=== PATIENT | male | born 1995 | race Caucasian/White ===

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

== ENCOUNTER 2018-02-01 13:59 | Emergency (ER) | payer MEDICAID ==
[~2018-02-01] VITALS: Ht 190.5 cm; Wt 63.6 kg
[2018-02-01 14:05] VITALS: Ht 190.5 cm; Wt 63.6 kg
[2018-02-01] MEDS ORDERED: ZANTAC150 MG PO (14:06)
[2018-02-01] MEDS ORDERED: ATIVAN1 MG PO (14:06)
[2018-02-01 14:49] LABS: BASOPHILS 0.5 % (0-2); EOSINOPHILS 1.7 % (0-7); HEMATOCRIT 47.2 % (42.0-54.0); IMMATURE GRANULOCYTES 0.2 % (0-5); LYMPHOCYTES 33.3 % (15-50); MCH 31.6 pg (26.0-34.0); MCHC 33.9 g/dL (31.0-37.0); MCV 93.3 fL (80.0-100.0); MEAN PLATELET VOLUME 10.9 fL (7.4-10.4); MONOCYTES 11.3 % (2-11); PLATELET COUNT 165 10x3/uL (130-400); RBC 5.06 10x6/uL (4.20-6.10); RDW 11.8 % (11.5-14.5); WBC 4.2 10x3/uL (4.8-10.8)
[2018-02-01 15:07] LABS: ALKALINE PHOSPHATASE 67 U/L (46-116); ALT (SGPT) 19 U/L (10-68); BILIRUBIN - TOTAL 0.44 mg/dL (0.2-1.3); CALC OSMOLALITY 276 mosm/kg (275-300); CALCIUM 9.6 mg/dL (8.5-10.1); CARBON DIOXIDE 28.9 mmol/L (21.0-32.0); CHLORIDE - SERUM 104 mmol/L (98-107); CREATININE - SERUM 0.9 mg/dL (0.6-1.3); GLUCOSE 91 mg/dL (74-106); POTASSIUM - SERUM 4.2 mmol/L (3.5-5.1); PROTEIN - SERUM 7.1 g/dL (6.4-8.2); SODIUM 140 mmol/L (136-145); UREA NITROGEN 8 mg/dL (7-18); eGFR NON AFRICAN AMERICAN > 90 mL/min (90-120)
[2018-02-01 15:55] LABS: AMYLASE - SERUM 57 U/L (25-115); LIPASE 113 U/L (73-393)
[2018-02-01 16:41] LABS: APPEARANCE CLEAR (CLEAR); BILIRUBIN NEGATIVE (NEGATIVE); COLOR YELLOW (YELLOW); GLUCOSE NEGATIVE (NEGATIVE); KETONE NEGATIVE (NEGATIVE); NITRITE NEGATIVE (NEGATIVE); PROTEIN NEGATIVE (NEGATIVE); SPECIFIC GRAVITY 1.005 (1.005-1.020); UROBILINOGEN NORMAL (NORMAL)
[2018-02-01 16:44] LABS: WHITE CELLS - URINE 0-5 /hpf (0-5)
[2018-02-01 16:45] LABS: BACTERIA FEW /hpf (NONE SEEN)
[2018-02-01] MEDS ORDERED: PHENERGAN25 MG RC (18:49)
[2018-02-01] MEDS ORDERED: CIPRO500 MG PO (18:49)
[2018-02-01] MEDS ORDERED: FLAGYL500 MG PO (18:49)
[2018-02-01 20:00] VITALS: BP 133/69
[2018-04-16 12:45] VITALS: Ht 190.5 cm; Wt 63.6 kg
== END 2018-02-01 20:00 | disposition home or self-care (01) ==
LOC: D.ER 13:59
PROVIDERS: Emergency Medicine
DX: K52.9 Noninfective gastroenteritis and colitis, unspecified (principal); F17.200 Nicotine dependence, unspecified, uncomplicated

== ENCOUNTER → 2018-02-14 12:39 | Outpatient (CLI) | payer MEDICAID ==
[2018-02-01 14:05] VITALS: BMI 17.5
[~2018-02-14 12:39] MED LIST: ATIVAN1 MG PO; CARAFATE1 G PO; CIPRO500 MG PO; FLAGYL 500500 MG/100 IV; FLAGYL500 MG PO; LEVSIN/ANASP0.125 MG SL; NICODERM C1 PATCH .2 TRANSDERM; NICODERM C1 PATCH .3 TRANSDERM; PHENERGAN25 MG RC; PROTONIX40 MG PO; ZANTAC150 MG PO
[2018-04-16 12:45] VITALS: BMI 18.1
== END | disposition home or self-care (01) ==
LOC: D.NM 02-10 08:00
DX: R11.2 Nausea with vomiting, unspecified (principal)

== ENCOUNTER 2018-02-20 18:18 | Inpatient (IN) | payer MEDICAID ==
[~2018-02-20] VITALS: Ht 190.5 cm; Wt 69.4 kg
--- NOTE | ~2018-02-20 | OP ---
PATIENT NAME: YOBANI RODRIGUEZ II MEDICAL RECORD: [id number] :[birth year] LOCATION:D.[id number] ADMISSION DATE:02/22/18 SURGEON: JORGE GARZA MD DATE OF OPERATION: 02/24/2018 PREOPERATIVE DIAGNOSIS: Biliary dyskinesia. POSTOPERATIVE DIAGNOSES: Biliary dyskinesia with hepatomegaly. PROCEDURES: 1. Laparoscopic cholecystectomy. 2. Intraoperative cholangiogram without immediate surgeon interpretation. 3. A 14-gauge core needle liver biopsy. SURGEON: Jorge Garza MD DIRECTOR OF SPEECH PATHOLOGY: None. BLOOD LOSS: Minimal. ANESTHESIA: General. COMPLICATIONS: None. The risks, possible complications, and alternatives to the procedures were explained to the patient. He elects to proceed. OPERATIVE COURSE: The patient was conveyed to the operating room electively on 02/24/2018. General anesthesia was induced by the anesthesia staff. The abdomen was sterilely prepped and draped. A small skin livan was accomplished in the left upper quadrant. A Veress needle was inserted through the skin livan into the peritoneal cavity. CO2 insufflation was begun. Once a sufficient pneumoperitoneum had been achieved, a 5 mm trocar was inserted through an incision in the right upper quadrant. Under direct internal vision utilizing a television camera, a 12 mm trocar was inserted through an incision at the umbilicus. Another 5 mm trocar was inserted through an incision in the epigastrium. Another 5 mm trocar was inserted far laterally in the right upper quadrant. During insertion of the Veress needle and all trocars, there appeared to have been no injury to the bowels, any intraperitoneal or retroperitoneal structures. The indication for the liver biopsy was hepatomegaly. Under laparoscopic guidance, I percutaneously accessed the right upper quadrant utilizing an 14-gauge core needle liver biopsy device. Cores were obtained over the convexity of the liver. The biopsy sites were made hemostatic with the electrocautery. I then advanced a cholangiogram trocar. I punctured the fundus of the gallbladder. I aspirated bile. I then injected dye. Under real time fluoroscopy, static fluoroscopic images were obtained. These are cholangiographic images that are sent to the radiologist for interpretation. I then aspirated bile and removed the cholangiogram trocar. The gallbladder was grasped and retracted cephalad. The infundibulum was grasped and retracted laterally. The critical view was identified. Blunt dissection was begun on the triangle of Calot. One cystic artery and one cystic duct were identified. These were clipped multiply and divided between clips. OPERATIVE REPORT [id number] YOBANI RODRIGUEZ II The gallbladder was then excised from its bed in the liver. It was placed within a bag retrieval device and was withdrawn through the umbilical fascial defect. The 12 mm trocar was replaced and the abdomen reinsufflated. I irrigated and aspirated in the right upper quadrant. There was no bleeding even at low pressure of 8. Utilizing the Kevan-Keith suture closure device and a 0 Vicryl suture, the umbilical fascia was closed. All the trocars were removed and the abdomen desufflated. The skin at the umbilicus was closed with interrupted 4-0 Vicryl Rapide sutures. The other skin incisions were closed with interrupted intracuticular 3-0 Vicryls. Benzoin and Steri-Strips were applied. The patient was then extubated and conveyed to the post-anesthesia care unit, where he was in stable condition. He will be dismissed with an analgesia script. TRANSINT:[id number] Voice Confirmation ID: [id number] DOCUMENT ID: [id number] JORGE GARZA MD at 1024 CC: ROSA NANCE [id number] DICTATION DATE: 02/24/18 1257 GAMMA FACILITIES OPERATOR: 02/24/18 1308 DIS IN 02/25/18 [id number] [place] [address]
--- NOTE | ~2018-02-20 | MORECARE ---
CASE MANAGEMENT DISCHARGE SUMMARY PATIENT: YOBANI RODRIGUEZ II UNIT: [id number] ADM DATE: 02/22/18 AGE: 22 : [birth year] SEX: M ROOM/BED: [id number].2232 AUTHOR: CASE, PORTER SAMPLE CASE PHYSICIAN: REFERRING PHYSICIAN: ROSA NANCE MD DATE OF SERVICE: 02/22/18 Discharge Plan Patient Name: YOBANI RODRIGUEZ Facility: [facility]:[place] : 1995 Planned Disposition: Home Anticipated Discharge Date: 02/25/18 Discharge Date: 02/25/2018 Expected LOS: 3 Initial Reviewer: [email or web address] Initial Review Date: 02/20/2018 Generated: 02/27/18 11:17 am Comments DCP- Discharge Planning Updated by [email or web address]: Shy Green on 02/25/18 8:[address] Patient Name: YOBANI RODRIGUEZ Admission Status: CO Accout number: [id number] Admission Date: 02-22-2018 : 1995 Admission Diagnosis: Attending: ROSA NANCE Current LOS: 3 Anticipated DC Date: 02-25-2018 Planned Disposition: Home Primary [place]: [place] [employer] [place] Discharge Planning Comments: CM met with patient and mother about dc planning. Plans to go home where he lives with family. Mother (Malorie) to transport home when discharged. Home environment safe. Denies any needs. CM will continue to follow and assist with dc planning/needs. Lunch Truck Operator: Shy Green DCPIA - Discharge Planning Initial Assessment Updated by [email or web address]: Shy Green on 02/25/18 9:52 am * Is the patient Alert and Oriented? Yes * PCP Gita * Pharmacy [facility] * Preadmission Environment Home with Family * ADLs Independent * Equipment None * List name and contact numbers for known caregivers / representatives who currently or will assist patient after discharge: Malorie mom, * Verbal permission to speak to the caregivers and representatives has been obtained from the patient. Yes * Additional services required to return to the preadmission environment? No * Can the patient safely return to the preadmission environment? Yes * Has this patient been hospitalized within the prior 30 days at any hospital? No Patient Name: YOBANI RODRIGUEZ Page [id number] All edits/amendments must be made on the electronic document DICTATION DATE: 02/27/18 1017 MOTORBOAT MECHANIC: 02/27/18 1017 RPT#: [id number] DC DATE:02/25/18 STATUS: DIS IN [facility] [address] [place] [address] END OF REPORT
[~2018-02-20 18:18] MED LIST changes: -CARAFATE1 G PO; -FLAGYL 500500 MG/100 IV; -LEVSIN/ANASP0.125 MG SL; -NICODERM C1 PATCH .2 TRANSDERM; -NICODERM C1 PATCH .3 TRANSDERM; -PROTONIX40 MG PO
[2018-02-21 01:19] VITALS: BP 124/73; BMI 19.1
[2018-02-21 04:04] VITALS: BP 108/45
[2018-02-21 07:36] LABS: BASOPHILS 0.2 % (0-2); EOSINOPHILS 1.2 % (0-7); HEMATOCRIT 45.5 % (42.0-54.0); HEMOGLOBIN 15.3 g/dL (13.5-17.5); LYMPHOCYTES 48.3 % (15-50); MCH 30.8 pg (26.0-34.0); MCHC 33.6 g/dL (31.0-37.0); MCV 91.5 fL (80.0-100.0); MEAN PLATELET VOLUME 10.9 fL (7.4-10.4); NEUTROPHILS 40.3 % (40-80); PLATELET COUNT 157 10x3/uL (130-400); RBC 4.97 10x6/uL (4.20-6.10); RDW 11.5 % (11.5-14.5); WBC 4.3 10x3/uL (4.8-10.8)
[2018-02-21 08:17] LABS: ALBUMIN 3.4 g/dL (3.4-5.0); ALKALINE PHOSPHATASE 53 U/L (46-116); ALT (SGPT) 17 U/L (10-68); AMYLASE - SERUM 48 U/L (25-115); BILIRUBIN - TOTAL 0.77 mg/dL (0.2-1.3); CALC OSMOLALITY 280 mosm/kg (275-300); CALCIUM 8.8 mg/dL (8.5-10.1); CARBON DIOXIDE 30.8 mmol/L (21.0-32.0); CHLORIDE - SERUM 106 mmol/L (98-107); CREATININE - SERUM 0.7 mg/dL (0.6-1.3); GAMMA GT 23 U/L (5-85); GLUCOSE 92 mg/dL (74-106); LIPASE 134 U/L (73-393); POTASSIUM - SERUM 4.5 mmol/L (3.5-5.1); PROTEIN - SERUM 6.1 g/dL (6.4-8.2); SODIUM 142 mmol/L (136-145); THYROID STIMULATING HORMONE 2.81 uIU/mL (0.36-3.74); UREA NITROGEN 6 mg/dL (7-18); eGFR NON AFRICAN AMERICAN > 90 mL/min (90-120)
[2018-02-21 09:01] VITALS: BP 105/59
[2018-02-21 13:39] VITALS: BMI 19.1
[2018-02-21 13:45] VITALS: BP 109/62
[2018-02-21 16:09] VITALS: BP 112/70
[2018-02-21 19:48] VITALS: BP 100/46
[2018-02-22] VITALS (7 sets, daily range): BP systolic 97–154; BP diastolic 49–75; Ht 190.5 cm; Wt 69.4 kg
[2018-02-22 06:42] LABS: BASOPHILS 0.5 % (0-2); EOSINOPHILS 1.4 % (0-7); HEMATOCRIT 42.4 % (42.0-54.0); HEMOGLOBIN 14.4 g/dL (13.5-17.5); IMMATURE GRANULOCYTES 0.2 % (0-5); LYMPHOCYTES 45.7 % (15-50); MCH 30.8 pg (26.0-34.0); MCV 90.8 fL (80.0-100.0); MEAN PLATELET VOLUME 10.8 fL (7.4-10.4); MONOCYTES 9.5 % (2-11); NEUTROPHILS 42.7 % (40-80); PLATELET COUNT 155 10x3/uL (130-400); RBC 4.67 10x6/uL (4.20-6.10); RDW 11.5 % (11.5-14.5); WBC 4.2 10x3/uL (4.8-10.8)
[2018-02-22 07:00] LABS: ALBUMIN 3.2 g/dL (3.4-5.0); ALKALINE PHOSPHATASE 48 U/L (46-116); ALT (SGPT) 15 U/L (10-68); BILIRUBIN - TOTAL 0.82 mg/dL (0.2-1.3); CALC OSMOLALITY 274 mosm/kg (275-300); CALCIUM 8.7 mg/dL (8.5-10.1); CARBON DIOXIDE 30.1 mmol/L (21.0-32.0); CHLORIDE - SERUM 106 mmol/L (98-107); CREATININE - SERUM 0.6 mg/dL (0.6-1.3); GLUCOSE 91 mg/dL (74-106); POTASSIUM - SERUM 3.9 mmol/L (3.5-5.1); PROTEIN - SERUM 5.7 g/dL (6.4-8.2); SODIUM 139 mmol/L (136-145); eGFR NON AFRICAN AMERICAN > 90 mL/min (90-120)
[2018-02-22 07:01] LABS: UREA NITROGEN 4 mg/dL (7-18)
[2018-02-23 06:02] LABS: BASOPHILS 0.5 % (0-2); HEMATOCRIT 42.7 % (42.0-54.0); HEMOGLOBIN 14.5 g/dL (13.5-17.5); IMMATURE GRANULOCYTES 0.2 % (0-5); LYMPHOCYTES 43.4 % (15-50); MCH 30.7 pg (26.0-34.0); MCV 90.5 fL (80.0-100.0); MEAN PLATELET VOLUME 11.2 fL (7.4-10.4); MONOCYTES 10.7 % (2-11); NEUTROPHILS 43.2 % (40-80); PLATELET COUNT 157 10x3/uL (130-400); RBC 4.72 10x6/uL (4.20-6.10); RDW 11.3 % (11.5-14.5); WBC 4.4 10x3/uL (4.8-10.8)
[2018-02-23 06:39] LABS: ALBUMIN 3.2 g/dL (3.4-5.0); ALKALINE PHOSPHATASE 48 U/L (46-116); ALT (SGPT) 15 U/L (10-68); BILIRUBIN - TOTAL 0.69 mg/dL (0.2-1.3); CALC OSMOLALITY 280 mosm/kg (275-300); CALCIUM 8.6 mg/dL (8.5-10.1); CARBON DIOXIDE 29.5 mmol/L (21.0-32.0); CHLORIDE - SERUM 106 mmol/L (98-107); CREATININE - SERUM 0.7 mg/dL (0.6-1.3); GLUCOSE 83 mg/dL (74-106); PROTEIN - SERUM 5.5 g/dL (6.4-8.2); SODIUM 143 mmol/L (136-145); UREA NITROGEN 5 mg/dL (7-18); eGFR NON AFRICAN AMERICAN > 90 mL/min (90-120)
[2018-02-23 13:24] VITALS: BP 121/61
[2018-02-23 17:37] VITALS: BP 107/63
[2018-02-23 19:33] VITALS: BP 116/55
[2018-02-23 23:43] VITALS: BP 123/72
[2018-02-24 04:08] VITALS: BP 115/50
[2018-02-24 06:33] LABS: BASOPHILS 0.4 % (0-2); EOSINOPHILS 2.5 % (0-7); HEMATOCRIT 44.3 % (42.0-54.0); HEMOGLOBIN 15.1 g/dL (13.5-17.5); IMMATURE GRANULOCYTES 0.2 % (0-5); MCH 30.6 pg (26.0-34.0); MCHC 34.1 g/dL (31.0-37.0); MCV 89.9 fL (80.0-100.0); MEAN PLATELET VOLUME 11.1 fL (7.4-10.4); MONOCYTES 10.9 % (2-11); PLATELET COUNT 171 10x3/uL (130-400); RBC 4.93 10x6/uL (4.20-6.10); RDW 11.3 % (11.5-14.5); WBC 4.9 10x3/uL (4.8-10.8)
[2018-02-24 07:11] LABS: ALBUMIN 3.7 g/dL (3.4-5.0); ALKALINE PHOSPHATASE 50 U/L (46-116); ALT (SGPT) 16 U/L (10-68); BILIRUBIN - TOTAL 1.19 mg/dL (0.2-1.3); CALC OSMOLALITY 280 mosm/kg (275-300); CARBON DIOXIDE 32.7 mmol/L (21.0-32.0); CHLORIDE - SERUM 105 mmol/L (98-107); CREATININE - SERUM 0.7 mg/dL (0.6-1.3); GLUCOSE 88 mg/dL (74-106); POTASSIUM - SERUM 3.9 mmol/L (3.5-5.1); PROTEIN - SERUM 6.1 g/dL (6.4-8.2); SODIUM 143 mmol/L (136-145); UREA NITROGEN 4 mg/dL (7-18); eGFR NON AFRICAN AMERICAN > 90 mL/min (90-120)
[2018-02-24 08:48] VITALS: BP 126/57
[2018-02-24 14:17] VITALS: BP 138/82
[2018-02-24 16:27] VITALS: BP 146/82
[2018-02-24 21:32] VITALS: BP 131/68
[2018-02-25 04:13] VITALS: BP 124/64
[2018-02-25 06:23] LABS: BASOPHILS 0 % (0-2); EOSINOPHILS 0 % (0-7); HEMATOCRIT 43.1 % (42.0-54.0); IMMATURE GRANULOCYTES 0.2 % (0-5); LYMPHOCYTES 12.9 % (15-50); MCH 30.7 pg (26.0-34.0); MCHC 34.8 g/dL (31.0-37.0); MCV 88.3 fL (80.0-100.0); MEAN PLATELET VOLUME 11.4 fL (7.4-10.4); MONOCYTES 12.1 % (2-11); NEUTROPHILS 74.8 % (40-80); PLATELET COUNT 172 10x3/uL (130-400); RBC 4.88 10x6/uL (4.20-6.10); RDW 11.3 % (11.5-14.5)
[2018-02-25 06:28] LABS: WBC 9.6 10x3/uL (4.8-10.8)
[2018-02-25 06:45] LABS: ALBUMIN 3.9 g/dL (3.4-5.0); ALKALINE PHOSPHATASE 52 U/L (46-116); BILIRUBIN - TOTAL 0.74 mg/dL (0.2-1.3); CALC OSMOLALITY 281 mosm/kg (275-300); CALCIUM 8.8 mg/dL (8.5-10.1); CARBON DIOXIDE 29.3 mmol/L (21.0-32.0); CHLORIDE - SERUM 104 mmol/L (98-107); CREATININE - SERUM 0.7 mg/dL (0.6-1.3); GLUCOSE 90 mg/dL (74-106); POTASSIUM - SERUM 3.7 mmol/L (3.5-5.1); PROTEIN - SERUM 6.5 g/dL (6.4-8.2); SODIUM 143 mmol/L (136-145); UREA NITROGEN 4 mg/dL (7-18); eGFR NON AFRICAN AMERICAN > 90 mL/min (90-120)
[2018-02-25 06:47] LABS: ALT (SGPT) 65 U/L (10-68)
[2018-02-25 09:28] VITALS: BP 138/85
[2018-02-25] MEDS ORDERED: NICODERM C1 PATCH .2 TRANSDERM (11:19)
[2018-02-25 12:13] VITALS: BP 123/79
== END 2018-02-25 12:30 | disposition home or self-care (01) | DRG 418 ==
LOC: D.MS 18:18 → D.SDCHOLD 18:18 → OBSVTIME 18:18 → D.MS 18:28
PROVIDERS: Family Medicine; Surgery
PROC: 0FB03ZX Excision of Liver, Percutaneous Approach, Diagnostic (ICD-10-PCS; 2018-02-24)
PROC: 0FT44ZZ Resection of Gallbladder, Percutaneous Endoscopic Approach (ICD-10-PCS; principal; 2018-02-24 10:00)
PROC: BF121ZZ Fluoroscopy of Gallbladder using Low Osmolar Contrast (ICD-10-PCS; 2018-02-24 10:00)
DX: K82.8 Other specified diseases of gallbladder (principal); F17.203 Nicotine dependence unspecified, with withdrawal; E86.0 Dehydration; K21.9 Gastro-esophageal reflux disease without esophagitis; F20.9 Schizophrenia, unspecified

== ENCOUNTER 2018-03-24 08:46 | Inpatient (IN) | payer MEDICAID ==
[~2018-03-24] VITALS: Ht 190.5 cm; Wt 67.9 kg
[2018-03-24 08:00] VITALS: BP 138/82
[~2018-03-24 08:46] MED LIST changes: +NICODERM C1 PATCH .2 TRANSDERM
[2018-03-24 09:30] VITALS: BP 121/71
[2018-03-24 09:41] LABS: APPEARANCE CLEAR (CLEAR); BILIRUBIN NEGATIVE (NEGATIVE); COLOR YELLOW (YELLOW); GLUCOSE NEGATIVE (NEGATIVE); KETONE NEGATIVE (NEGATIVE); NITRITE NEGATIVE (NEGATIVE); PROTEIN NEGATIVE (NEGATIVE); UROBILINOGEN NORMAL (NORMAL)
[2018-03-24 09:42] LABS: ALKALINE PHOSPHATASE 77 U/L (46-116); ALT (SGPT) 28 U/L (10-68); BASOPHILS 0.5 % (0-2); BILIRUBIN - TOTAL 0.78 mg/dL (0.2-1.3); CALC OSMOLALITY 273 mosm/kg (275-300); CARBON DIOXIDE 30.4 mmol/L (21.0-32.0); CHLORIDE - SERUM 105 mmol/L (98-107); CREATININE - SERUM 0.7 mg/dL (0.6-1.3); EOSINOPHILS 1.8 % (0-7); GLUCOSE 102 mg/dL (74-106); HEMATOCRIT 47.8 % (42.0-54.0); HEMOGLOBIN 16.3 g/dL (13.5-17.5); LYMPHOCYTES 36.4 % (15-50); MCH 30.8 pg (26.0-34.0); MCHC 34.1 g/dL (31.0-37.0); MCV 90.4 fL (80.0-100.0); MEAN PLATELET VOLUME 11.2 fL (7.4-10.4); MONOCYTES 8.9 % (2-11); NEUTROPHILS 52.4 % (40-80); PLATELET COUNT 172 10x3/uL (130-400); POTASSIUM - SERUM 4.1 mmol/L (3.5-5.1); PROTEIN - SERUM 7.2 g/dL (6.4-8.2); RBC 5.29 10x6/uL (4.20-6.10); RDW 11.7 % (11.5-14.5); SODIUM 138 mmol/L (136-145); UREA NITROGEN 6 mg/dL (7-18); WBC 4.4 10x3/uL (4.8-10.8); eGFR NON AFRICAN AMERICAN > 90 mL/min (90-120)
[2018-03-24 10:00] VITALS: BP 127/77
[2018-03-24 10:30] VITALS: BP 116/66
[2018-03-24 10:59] VITALS: BP 119/72
[2018-03-24 11:00] LABS: HELICOBACTER PYLORI IGG NEGATIVE (NEGATIVE)
[2018-03-24 11:56] VITALS: BP 129/77; BMI 17.5
[2018-03-25 04:33] VITALS: BP 115/71
[2018-03-25 05:26] LABS: BASOPHILS 0.4 % (0-2); EOSINOPHILS 2.1 % (0-7); HEMATOCRIT 41.6 % (42.0-54.0); LYMPHOCYTES 37.8 % (15-50); MCH 30.6 pg (26.0-34.0); MCHC 33.7 g/dL (31.0-37.0); MCV 90.8 fL (80.0-100.0); MEAN PLATELET VOLUME 11.3 fL (7.4-10.4); MONOCYTES 11.1 % (2-11); NEUTROPHILS 48.6 % (40-80); PLATELET COUNT 147 10x3/uL (130-400); RBC 4.58 10x6/uL (4.20-6.10); RDW 11.8 % (11.5-14.5); WBC 4.8 10x3/uL (4.8-10.8)
[2018-03-25 05:53] LABS: CALC OSMOLALITY 274 mosm/kg (275-300); CALCIUM 7.8 mg/dL (8.5-10.1); CARBON DIOXIDE 27.8 mmol/L (21.0-32.0); CHLORIDE - SERUM 108 mmol/L (98-107); CREATININE - SERUM 0.7 mg/dL (0.6-1.3); GLUCOSE 84 mg/dL (74-106); POTASSIUM - SERUM 3.8 mmol/L (3.5-5.1); SODIUM 140 mmol/L (136-145); UREA NITROGEN 5 mg/dL (7-18); eGFR NON AFRICAN AMERICAN > 90 mL/min (90-120)
[2018-03-25 07:54] VITALS: BP 102/45
[2018-03-25 11:36] VITALS: BP 158/84
[2018-03-25 13:53] VITALS: Ht 190.5 cm; Wt 67.9 kg
[2018-03-25 16:28] VITALS: BP 138/78
[2018-03-25 20:00] VITALS: BP 122/78
[2018-03-26 04:00] VITALS: BP 114/62
[2018-03-26 07:00] LABS: BASOPHILS 0.4 % (0-2); EOSINOPHILS 2.4 % (0-7); HEMATOCRIT 42.3 % (42.0-54.0); HEMOGLOBIN 14.4 g/dL (13.5-17.5); LYMPHOCYTES 35.2 % (15-50); MCH 30.7 pg (26.0-34.0); MCV 90.2 fL (80.0-100.0); MEAN PLATELET VOLUME 11.4 fL (7.4-10.4); MONOCYTES 10.1 % (2-11); NEUTROPHILS 51.9 % (40-80); PLATELET COUNT 138 10x3/uL (130-400); RBC 4.69 10x6/uL (4.20-6.10); RDW 11.8 % (11.5-14.5); WBC 4.5 10x3/uL (4.8-10.8)
[2018-03-26 07:14] LABS: CALC OSMOLALITY 276 mosm/kg (275-300); CALCIUM 8.4 mg/dL (8.5-10.1); CARBON DIOXIDE 27.2 mmol/L (21.0-32.0); CHLORIDE - SERUM 108 mmol/L (98-107); CREATININE - SERUM 0.8 mg/dL (0.6-1.3); GLUCOSE 84 mg/dL (74-106); POTASSIUM - SERUM 3.8 mmol/L (3.5-5.1); SODIUM 141 mmol/L (136-145); UREA NITROGEN 5 mg/dL (7-18); eGFR NON AFRICAN AMERICAN > 90 mL/min (90-120)
[2018-03-26 08:51] VITALS: BP 133/76
[2018-03-26 11:32] VITALS: BP 130/65
[2018-03-26 16:03] VITALS: BP 113/53
[2018-03-26 20:00] VITALS: BP 124/69
[2018-03-27 04:00] VITALS: BP 114/66
[2018-03-27 07:11] LABS: BASOPHILS 0.2 % (0-2); EOSINOPHILS 2.2 % (0-7); HEMATOCRIT 40.9 % (42.0-54.0); HEMOGLOBIN 14.4 g/dL (13.5-17.5); IMMATURE GRANULOCYTES 0.2 % (0-5); LYMPHOCYTES 29.2 % (15-50); MCH 31.6 pg (26.0-34.0); MCHC 35.2 g/dL (31.0-37.0); MCV 89.9 fL (80.0-100.0); MEAN PLATELET VOLUME 10.9 fL (7.4-10.4); MONOCYTES 12.6 % (2-11); NEUTROPHILS 55.6 % (40-80); PLATELET COUNT 123 10x3/uL (130-400); RBC 4.55 10x6/uL (4.20-6.10); RDW 11.7 % (11.5-14.5); WBC 5.1 10x3/uL (4.8-10.8)
[2018-03-27 07:28] LABS: CALC OSMOLALITY 279 mosm/kg (275-300); CALCIUM 8.3 mg/dL (8.5-10.1); CHLORIDE - SERUM 108 mmol/L (98-107); CREATININE - SERUM 0.8 mg/dL (0.6-1.3); GLUCOSE 96 mg/dL (74-106); POTASSIUM - SERUM 3.7 mmol/L (3.5-5.1); SODIUM 142 mmol/L (136-145); eGFR NON AFRICAN AMERICAN > 90 mL/min (90-120)
[2018-03-27 07:30] LABS: UREA NITROGEN 3 mg/dL (7-18)
[2018-03-27 08:13] VITALS: BP 121/73
[2018-03-27 11:52] VITALS: BP 136/79
[2018-03-27 16:29] VITALS: BP 123/73
[2018-03-27 22:28] VITALS: BP 133/88
[2018-03-28 00:41] VITALS: BP 121/53
[2018-03-28 05:44] VITALS: BP 137/68
[2018-03-28 06:27] LABS: BASOPHILS 0.2 % (0-2); EOSINOPHILS 2.3 % (0-7); HEMATOCRIT 40.9 % (42.0-54.0); LYMPHOCYTES 28.7 % (15-50); MCH 30.3 pg (26.0-34.0); MCHC 34.2 g/dL (31.0-37.0); MCV 88.5 fL (80.0-100.0); MEAN PLATELET VOLUME 11.1 fL (7.4-10.4); MONOCYTES 12.1 % (2-11); NEUTROPHILS 56.7 % (40-80); PLATELET COUNT 138 10x3/uL (130-400); RBC 4.62 10x6/uL (4.20-6.10); RDW 11.5 % (11.5-14.5); WBC 4.8 10x3/uL (4.8-10.8)
[2018-03-28 06:32] LABS: CALC OSMOLALITY 278 mosm/kg (275-300); CALCIUM 8.1 mg/dL (8.5-10.1); CARBON DIOXIDE 28.2 mmol/L (21.0-32.0); CHLORIDE - SERUM 107 mmol/L (98-107); CREATININE - SERUM 0.7 mg/dL (0.6-1.3); GLUCOSE 100 mg/dL (74-106); POTASSIUM - SERUM 3.3 mmol/L (3.5-5.1); SODIUM 142 mmol/L (136-145); eGFR NON AFRICAN AMERICAN > 90 mL/min (90-120)
[2018-03-28 06:33] LABS: UREA NITROGEN 2 mg/dL (7-18)
[2018-03-28 08:50] VITALS: BP 128/84
[2018-03-28 13:04] VITALS: BP 133/80
[2018-03-28 14:26] LABS: CALC OSMOLALITY 283 mosm/kg (275-300); CALCIUM 8.4 mg/dL (8.5-10.1); CARBON DIOXIDE 27.7 mmol/L (21.0-32.0); CHLORIDE - SERUM 107 mmol/L (98-107); CREATININE - SERUM 0.8 mg/dL (0.6-1.3); GLUCOSE 158 mg/dL (74-106); POTASSIUM - SERUM 3.4 mmol/L (3.5-5.1); SODIUM 143 mmol/L (136-145); UREA NITROGEN 2 mg/dL (7-18); eGFR NON AFRICAN AMERICAN > 90 mL/min (90-120)
[2018-03-28 16:55] VITALS: BP 137/71
[2018-03-28 21:22] VITALS: BP 129/66
[2018-03-29 01:07] VITALS: BP 124/62
[2018-03-29 05:13] VITALS: BP 119/69
[2018-03-29 06:00] LABS: BASOPHILS 0.4 % (0-2); EOSINOPHILS 1.6 % (0-7); HEMATOCRIT 41.6 % (42.0-54.0); HEMOGLOBIN 14.3 g/dL (13.5-17.5); LYMPHOCYTES 29.9 % (15-50); MCH 30.8 pg (26.0-34.0); MCHC 34.4 g/dL (31.0-37.0); MCV 89.7 fL (80.0-100.0); MEAN PLATELET VOLUME 10.8 fL (7.4-10.4); MONOCYTES 13.7 % (2-11); NEUTROPHILS 54.4 % (40-80); PLATELET COUNT 126 10x3/uL (130-400); RBC 4.64 10x6/uL (4.20-6.10); RDW 11.9 % (11.5-14.5); WBC 5.6 10x3/uL (4.8-10.8)
[2018-03-29 06:24] LABS: CALCIUM 8.2 mg/dL (8.5-10.1); CARBON DIOXIDE 26.2 mmol/L (21.0-32.0); CHLORIDE - SERUM 108 mmol/L (98-107); CREATININE - SERUM 0.7 mg/dL (0.6-1.3); POTASSIUM - SERUM 3.7 mmol/L (3.5-5.1); SODIUM 141 mmol/L (136-145); eGFR NON AFRICAN AMERICAN > 90 mL/min (90-120)
[2018-03-29 06:25] LABS: CALC OSMOLALITY 277 mosm/kg (275-300); GLUCOSE 105 mg/dL (74-106); UREA NITROGEN 3 mg/dL (7-18)
[2018-03-29 09:45] VITALS: BP 132/78
[2018-03-29] MEDS ORDERED: FLAGYL 500500 MG/100 IV (10:33)
[2018-03-29] MEDS ORDERED: LEVSIN/ANASP0.125 MG SL (10:34)
[2018-03-29] MEDS ORDERED: CARAFATE1 G PO (10:34)
[2018-03-29] MEDS ORDERED: NICODERM C1 PATCH .3 TRANSDERM (10:34)
[2018-03-29] MEDS ORDERED: PROTONIX40 MG PO (10:34)
[2018-04-03 22:15] LABS: OVA + PARASITE EXAM Final report (())
== END 2018-03-29 12:01 | disposition home or self-care (01) | DRG 381 ==
LOC: D.ER 08:46 → D.M2 10:20
PROVIDERS: Emergency Medicine; Internal Medicine Gastroenterology; Internal Medicine Nephrology
PROC: 0DB78ZX Excision of Stomach, Pylorus, Via Natural or Artificial Opening Endoscopic, Diagnostic (ICD-10-PCS; 2018-03-27)
PROC: 0DB58ZX Excision of Esophagus, Via Natural or Artificial Opening Endoscopic, Diagnostic (ICD-10-PCS; 2018-03-27)
PROC: 0DB98ZX Excision of Duodenum, Via Natural or Artificial Opening Endoscopic, Diagnostic (ICD-10-PCS; principal; 2018-03-27 07:00)
DX: K22.10 Ulcer of esophagus without bleeding (principal); F17.213 Nicotine dependence, cigarettes, with withdrawal; K31.84 Gastroparesis; F41.9 Anxiety disorder, unspecified; F32.9 Major depressive disorder, single episode, unspecified; R19.7 Diarrhea, unspecified; K29.00 Acute gastritis without bleeding; K29.80 Duodenitis without bleeding

== ENCOUNTER 2018-04-16 12:12 | Emergency (ER) | payer MEDICAID ==
[~2018-04-16] VITALS: Ht 190.5 cm; Wt 65.9 kg
[~2018-04-16 12:12] MED LIST changes: +CARAFATE1 G PO; +FLAGYL 500500 MG/100 IV; +LEVSIN/ANASP0.125 MG SL; +NICODERM C1 PATCH .3 TRANSDERM; +PROTONIX40 MG PO
[2018-04-16 12:45] VITALS: Ht 190.5 cm; Wt 65.9 kg
[2018-04-16 13:06] LABS: BASOPHILS 0.4 % (0-2); HEMATOCRIT 47.9 % (42.0-54.0); HEMOGLOBIN 16.7 g/dL (13.5-17.5); IMMATURE GRANULOCYTES 0.2 % (0-5); LYMPHOCYTES 31.9 % (15-50); MCH 31.1 pg (26.0-34.0); MCHC 34.9 g/dL (31.0-37.0); MCV 89.2 fL (80.0-100.0); MEAN PLATELET VOLUME 10.5 fL (7.4-10.4); MONOCYTES 8.9 % (2-11); NEUTROPHILS 57.6 % (40-80); RBC 5.37 10x6/uL (4.20-6.10)
[2018-04-16 13:10] LABS: PLATELET COUNT 159 10x3/uL (130-400)
[2018-04-16 13:21] LABS: ALKALINE PHOSPHATASE 80 U/L (46-116); ALT (SGPT) 33 U/L (10-68); BILIRUBIN - TOTAL 0.31 mg/dL (0.2-1.3); CALC OSMOLALITY 272 mosm/kg (275-300); CALCIUM 8.9 mg/dL (8.5-10.1); CARBON DIOXIDE 30.2 mmol/L (21.0-32.0); CHLORIDE - SERUM 103 mmol/L (98-107); CREATININE - SERUM 0.7 mg/dL (0.6-1.3); GLUCOSE 94 mg/dL (74-106); POTASSIUM - SERUM 4.5 mmol/L (3.5-5.1); PROTEIN - SERUM 7.4 g/dL (6.4-8.2); SODIUM 137 mmol/L (136-145); UREA NITROGEN 9 mg/dL (7-18); eGFR NON AFRICAN AMERICAN > 90 mL/min (90-120)
[2018-04-16 13:24] LABS: TROPONIN-I < 0.017 ng/mL (0.000-0.060)
[2018-04-16 16:43] VITALS: BP 126/87
== END 2018-04-16 16:44 | disposition home or self-care (01) ==
LOC: D.ER 12:12
PROVIDERS: Emergency Medicine
DX: R42 Dizziness and giddiness (principal); R55 Syncope and collapse; R00.0 Tachycardia, unspecified; F17.200 Nicotine dependence, unspecified, uncomplicated

== ENCOUNTER 2019-02-17 17:49 | Emergency (ER) | payer MEDICAID ==
[~2019-02-17] VITALS: Ht 190.5 cm; Wt 69.1 kg
[2019-02-17 18:01] VITALS: Ht 190.5 cm; Wt 69.1 kg
[2019-02-17 19:38] LABS: BASOPHILS 0.3 % (0-2); EOSINOPHILS 0.6 % (0-7); HEMATOCRIT 43.4 % (42.0-54.0); HEMOGLOBIN 15.4 g/dL (13.5-17.5); MCH 31.1 pg (26.0-34.0); MCHC 35.5 g/dL (31.0-37.0); MCV 87.7 fL (80.0-100.0); MEAN PLATELET VOLUME 10.7 fL (7.4-10.4); MONOCYTES 7.2 % (2-11); NEUTROPHILS 70.9 % (40-80); PLATELET COUNT 148 10x3/uL (130-400); RBC 4.95 10x6/uL (4.20-6.10); RDW 11.9 % (11.5-14.5); WBC 7.1 10x3/uL (4.8-10.8)
[2019-02-17 19:55] LABS: ALBUMIN 4.1 g/dL (3.4-5.0); ALKALINE PHOSPHATASE 63 U/L (46-116); ALT (SGPT) 13 U/L (10-68); BILIRUBIN - TOTAL 0.46 mg/dL (0.2-1.3); CALC OSMOLALITY 278 mosm/kg (275-300); CALCIUM 9.1 mg/dL (8.5-10.1); CARBON DIOXIDE 28.4 mmol/L (21.0-32.0); CHLORIDE - SERUM 104 mmol/L (98-107); CREATININE - SERUM 0.8 mg/dL (0.6-1.3); GLUCOSE 88 mg/dL (74-106); POTASSIUM - SERUM 3.9 mmol/L (3.5-5.1); SODIUM 140 mmol/L (136-145); UREA NITROGEN 15 mg/dL (7-18); eGFR NON AFRICAN AMERICAN > 90 mL/min (90-120)
[2019-02-17] MEDS ORDERED: KEPPRA500 MG PO (22:12)
[2019-02-17] MEDS ORDERED: PERCOCET 5-3251 TAB PO (22:14)
[2019-02-17 22:47] VITALS: BP 112/60
--- NOTE | 2019-02-18 00:03 | NUR ---
DR AGUILAR NOTIFIED AND REVIEWED PT's BEHAVIOR AND ASSESSMENT RESULTS. PT IS A LOW RISK PER DR AGUILAR. DR AGUILAR STATED TO GIVE RESOURCES TO PT AT TIME OF DISCHARGE. NO FURTHER ORDERS AT THIS TIME. RESOURCES REVIEWED WITH PT AND HE VERBALIZED UNDERSTANTING.
== END 2019-02-17 22:47 | disposition home or self-care (01) ==
LOC: D.ER 17:49
PROVIDERS: Family Medicine
DX: F07.81 Postconcussional syndrome (principal); G40.89 Other seizures

== ENCOUNTER 2019-02-24 10:51 | Emergency (ER) | payer MEDICAID ==
[~2019-02-24] VITALS: Ht 190.5 cm; Wt 69.1 kg
[~2019-02-24 10:51] MED LIST changes: +KEPPRA500 MG PO; +PERCOCET 5-3251 TAB PO
[2019-02-24 11:13] VITALS: Ht 190.5 cm; Wt 69.1 kg
[2019-02-24] MEDS ORDERED: TALWIN NX1 TAB PO (12:42)
[2019-02-24] MEDS ORDERED: PHENERGAN25 M1 PO (12:42)
[2019-02-24 13:23] VITALS: BP 110/58
== END 2019-02-24 13:24 | disposition home or self-care (01) ==
LOC: D.ER 10:51
DX: R51 Headache (principal); F07.81 Postconcussional syndrome

== ENCOUNTER 2019-04-29 13:52 | Emergency (ER) | payer MEDICAID ==
[~2019-04-29] VITALS: Ht 190.5 cm; Wt 70.5 kg
[~2019-04-29 13:52] MED LIST changes: +PHENERGAN25 M1 PO; +TALWIN NX1 TAB PO
[2019-04-29 14:08] VITALS: Ht 190.5 cm; Wt 70.5 kg
[2019-04-29] MEDS ORDERED: KLONOPIN1 MG (14:09)
[2019-04-29] MEDS ORDERED: ATIVAN0.5 MG (14:09)
[2019-04-29] MEDS ORDERED: ZOLOFT25 MG (14:09)
--- NOTE | 2019-04-29 14:29 | NUR ---
DR. AGUILAR NOTIFIED AND SITTER ORDERED. SITTER AT BEDSIDE. NOTIFIED CHARGE NURSE AND ATTENDING IN REGARDS TO ASSESSMENT FINDINGS. RESOURCES GIVEN TO PT AND SAFETY PLAN INITIATED.
[2019-04-29 14:34] LABS: APPEARANCE CLEAR (CLEAR); COLOR YELLOW (YELLOW); SPECIFIC GRAVITY 1.015 (1.005-1.020)
[2019-04-29 14:35] LABS: BASOPHILS 0.2 % (0-2); EOSINOPHILS 0.9 % (0-7); HEMATOCRIT 43.9 % (42.0-54.0); HEMOGLOBIN 15.2 g/dL (13.5-17.5); LYMPHOCYTES 29.3 % (15-50); MCH 31.2 pg (26.0-34.0); MCHC 34.6 g/dL (31.0-37.0); MCV 90.1 fL (80.0-100.0); MEAN PLATELET VOLUME 10.6 fL (7.4-10.4); MONOCYTES 10.9 % (2-11); NEUTROPHILS 58.7 % (40-80); PLATELET COUNT 131 10x3/uL (130-400); RBC 4.87 10x6/uL (4.20-6.10); RDW 11.8 % (11.5-14.5); WBC 4.5 10x3/uL (4.8-10.8)
[2019-04-29 14:35] LABS: BILIRUBIN NEGATIVE (NEGATIVE); GLUCOSE NEGATIVE (NEGATIVE); KETONE NEGATIVE (NEGATIVE); NITRITE NEGATIVE (NEGATIVE); PROTEIN NEGATIVE (NEGATIVE); UROBILINOGEN NORMAL (NORMAL)
[2019-04-29 14:42] LABS: UDS - AMPHET NEGATIVE QUAL (NEGATIVE); UDS - BARB NEGATIVE QUAL (NEGATIVE); UDS - BENZO POSITIVE QUAL (NEGATIVE); UDS - COCAINE NEGATIVE QUAL (NEGATIVE); UDS - OPIATE NEGATIVE QUAL (NEGATIVE); UDS - PCP NEGATIVE QUAL (NEGATIVE); UDS - THC POSITIVE QUAL (NEGATIVE)
[2019-04-29 14:54] LABS: ALBUMIN 3.5 g/dL (3.4-5.0); ALKALINE PHOSPHATASE 52 U/L (46-116); ALT (SGPT) 16 U/L (10-68); BILIRUBIN - TOTAL 0.34 mg/dL (0.2-1.3); CALC OSMOLALITY 281 mosm/kg (275-300); CALCIUM 8.5 mg/dL (8.5-10.1); CHLORIDE - SERUM 105 mmol/L (98-107); CREATININE - SERUM 0.7 mg/dL (0.6-1.3); GLUCOSE 75 mg/dL (74-106); POTASSIUM - SERUM 4.1 mmol/L (3.5-5.1); PROTEIN - SERUM 6.1 g/dL (6.4-8.2); SODIUM 142 mmol/L (136-145); UREA NITROGEN 12 mg/dL (7-18); eGFR NON AFRICAN AMERICAN > 90 mL/min (90-120)
[2019-04-29 21:26] VITALS: BP 113/66
== END 2019-04-29 21:30 ==
LOC: D.ER 13:52
PROVIDERS: Emergency Medicine
DX: R45.851 Suicidal ideations (principal); F32.9 Major depressive disorder, single episode, unspecified; F20.9 Schizophrenia, unspecified

== ENCOUNTER 2019-05-26 12:43 | Emergency (ER) | payer MEDICAID ==
[~2019-05-26] VITALS: Ht 193 cm; Wt 68.2 kg
[~2019-05-26 12:43] MED LIST changes: +ATIVAN0.5 MG; +KLONOPIN1 MG; +ZOLOFT25 MG
[2019-05-26 12:45] VITALS: Ht 193 cm; Wt 68.2 kg
[2019-05-26 13:37] LABS: BASOPHILS 0.5 % (0-2); EOSINOPHILS 1.1 % (0-7); HEMATOCRIT 48.5 % (42.0-54.0); HEMOGLOBIN 16.5 g/dL (13.5-17.5); IMMATURE GRANULOCYTES 0.2 % (0-5); LYMPHOCYTES 28.3 % (15-50); MCH 31.1 pg (26.0-34.0); MCV 91.5 fL (80.0-100.0); MEAN PLATELET VOLUME 10.4 fL (7.4-10.4); MONOCYTES 11.1 % (2-11); NEUTROPHILS 58.8 % (40-80); RDW 11.9 % (11.5-14.5); WBC 5.7 10x3/uL (4.8-10.8)
[2019-05-26 13:42] LABS: PLATELET COUNT 181 10x3/uL (130-400)
[2019-05-26 13:47] LABS: CALC OSMOLALITY 277 mosm/kg (275-300); CALCIUM 9.3 mg/dL (8.5-10.1); CARBON DIOXIDE 32.3 mmol/L (21.0-32.0); CHLORIDE - SERUM 106 mmol/L (98-107); CREATININE - SERUM 0.7 mg/dL (0.6-1.3); GLUCOSE 91 mg/dL (74-106); POTASSIUM - SERUM 4.3 mmol/L (3.5-5.1); SODIUM 140 mmol/L (136-145); UREA NITROGEN 9 mg/dL (7-18); eGFR NON AFRICAN AMERICAN > 90 mL/min (90-120)
[2019-05-26 13:53] LABS: ALBUMIN 4.1 g/dL (3.4-5.0); ALKALINE PHOSPHATASE 69 U/L (46-116); ALT (SGPT) 25 U/L (10-68); BILIRUBIN - TOTAL 0.43 mg/dL (0.2-1.3); MAGNESIUM - SERUM 2.2 mg/dL (1.8-2.4); PROTEIN - SERUM 7.2 g/dL (6.4-8.2)
[2019-05-26 15:26] LABS: APPEARANCE CLEAR (CLEAR); COLOR YELLOW (YELLOW); SPECIFIC GRAVITY 1.015 (1.005-1.020)
[2019-05-26 15:27] LABS: BILIRUBIN NEGATIVE (NEGATIVE); GLUCOSE NEGATIVE (NEGATIVE); KETONE NEGATIVE (NEGATIVE); NITRITE NEGATIVE (NEGATIVE); PROTEIN NEGATIVE (NEGATIVE); UROBILINOGEN NORMAL (NORMAL)
[2019-05-26 15:29] LABS: UDS - AMPHET NEGATIVE QUAL (NEGATIVE); UDS - BARB NEGATIVE QUAL (NEGATIVE); UDS - BENZO NEGATIVE QUAL (NEGATIVE); UDS - COCAINE NEGATIVE QUAL (NEGATIVE); UDS - OPIATE NEGATIVE QUAL (NEGATIVE); UDS - PCP NEGATIVE QUAL (NEGATIVE); UDS - THC POSITIVE QUAL (NEGATIVE)
--- NOTE | 2019-05-26 15:47 | NUR ---
DR. AGUILAR NOTIFIED AND SITTER ORDERED. SITTER AT BEDSIDE. RESOURCES GIVEN TO PT AND SAFETY PLAN INITIATED.
[2019-05-26 20:19] VITALS: BP 124/73
== END 2019-05-26 20:20 ==
LOC: D.ER 12:43
PROVIDERS: Family Medicine
DX: R45.851 Suicidal ideations (principal); F23 Brief psychotic disorder

== ENCOUNTER 2019-08-18 12:30 | Emergency (ER) | payer MEDICAID ==
[~2019-08-18] VITALS: Ht 193 cm; Wt 70.5 kg
[2019-08-18 12:59] VITALS: Ht 193 cm; Wt 70.5 kg
[2019-08-18] MEDS ORDERED: NYSTATIN1 PWD TOPICAL (14:18)
[2019-08-18 14:34] VITALS: BP 148/87
== END 2019-08-18 14:35 | disposition home or self-care (01) ==
LOC: D.ER 12:30
DX: N50.89 Other specified disorders of the male genital organs (principal); B37.2 Candidiasis of skin and nail